=== PATIENT | female | born 1960 | race Caucasian/White ===

== ENCOUNTER 2017-12-03 13:19 | Emergency (ER) | payer SELFPAY ==
[2017-12-03 13:23] VITALS: BMI 50.8
[2017-12-03] MEDS ORDERED: DUONEB 0.5 MG/3 MG ONE (13:32)
[2017-12-03] MEDS ORDERED: DUONEB 0.5 MG/3 MG NEB ONE (13:35)
[2017-12-03] MEDS ORDERED: ASPIRIN 81 MG CHEWTAB PO ONE (13:37)
[2017-12-03] MEDS ORDERED: ASPIRIN 81 MG CHEWTAB ONE (13:38)
[2017-12-03] MEDS ORDERED: NITROSTAT SL PRN (13:40)
--- NOTE | 2017-12-03 13:42 | DR.SOBA ---
HPI - Time Seen Time seen: 13:38 - Primary Care Physician Primary Care Physician: Arabella COWAN [employer] - Complaints Chief Complaint Doctors Comments: Patient presented to the ED with complaint of dyspnea and chest pain. The chest pain onset was early this AM and has continued. She admits to a history of heart attack in 2000 Chief Complaint:: PT. C/O SHORTNESS OF BREATH AND CHEST PAIN THAT BEGAN AT 0400. CHEST PAIN IS SHARP IN NATURE AND RADIATES THROUGH TO BACK. PT. ALSO HAS A COUGH. - Source History Provided: Patient - Mode of Arrival Mode of Arrival: Wheelchair - Timing Onset of Chief Complaint: 12/03/17 PMH - PMH Past Medical History: Yes Past Medical History: Anemia, Angina, Anxiety, Arthritis, Asthma, COPD, Coronary Artery Disease, Depression, Diabetes, Dyslipidemia, Hypertension, [place], PUD Past Surgical History: Yes Surgical History: Appendectomy, LABORER WRECKING AND SALVAGING Surgery - Family History History of Family Medical Conditions: Yes Family Medical History: Diabetes Mellitus, Coronary Artery Disease, Hypertension - Social History Does patient currently use any type of tobacco product: No Have you used tobacco products in the last 12 months: No Type of Tobacco Use: None Does any household member use tobacco: No Alcohol Use: None Do you use any recreational Drugs:: No Lives With: Family Lives Where: Home - infectious screening In the last 2 months have you had wt loss of >10#?: NO Have you had fever, night sweats or hemotysis?: No Have you traveled outside the country in the last 6 months?: No Isolation: Standard ROS - Review of Systems Eyes: No Symptoms Reported ENTM: No Symptoms Reported Respiratoy: Short of Breath Cardiovascular: Chest Pain Gastrointestinal/Abdominal: No Symptoms Reported Genitourinary: No Symptoms Reported Neurological: Headache Musculoskeletal: No Symptoms Reported Integumentary: No Symptoms Reported Hematologic/Lymphatic: No Symptoms Reported Endocrine: No Symptoms Reported Psychiatric: No Symptoms Reported All Other Systems: Reviewed and Negative PE - Vital Signs Vitals: Temperature 97.6 F Pulse Rate [Apical] 116 Pulse Rate 119 Respiratory Rate 35 Blood Pressure [Right Arm] 83/44 Blood Pressure [Left Arm] 81/49 Blood Pressure 117/61 O2 Sat by Pulse Oximetry 87 - General General Appearance: Alert, In Distress - Head Head Exam: Normal Inspection, Atraumatic - Eyes Eye exam: Normal Appearance, PERRL, EOMI - ENT ENT Exam: Normal Exam - Neck Neck Exam: Normal Inspection, Full ROM - Chest Chest Inspection: Normal Inspection - Respiratory Respiratory Exam: Normal Lung Sounds Bilat Respiratory Exam: Bilateral Clear to Auscultation - Cardiovascular Cardiovascular Exam: Regular Rate, Normal Rhythm - Abdominal Exam Abdominal Exam: Normal Inspection Abdominal Tenderness: negative: RUQ, RLQ, LUQ, LLQ, Epigastrium, Suprapubic, Diffuse, Mild, Moderate, Severe, Other - Extremities Extremities Exam: Normal Inspection. negative: Edema - Back Back Exam: Normal Inspection - Neurologic Neurological Exam: Alert, Oriented X3, CN II-XII Intact - Psychiatric Psychiatric Exam: Normal Affect - Skin Skin Exam: Warm, Dry, Intact, Normal Color. negative: Erythema Course - Treatment Treatment: Ceftriaxone 1gm IV - Reevaluation 1st: - Consultation Called: 17:00 (Dr Burt accepted patient in transfer for futher evaluation and treatment) - Education/Counseling Education/Counseling: Counseling ROR - Labs Reviewed Laboratory Results Reviewed?: Yes (Lactate 6.8) Result Diagrams: 12/03/17 13:55 12/03/17 13:55 Laboratory: WBC 19.5 X10^3/uL (3.6-10.0) H 12/03/17 13:55 RBC 4.75 X10^6/uL (3.5-5.4) 12/03/17 13:55 Hgb 13.1 g/dL (12.0-16.0) 12/03/17 13:55 Hct 41.3 % (36.0-47.0) 12/03/17 13:55 MCV 87.0 fL (80.0-100.0) 12/03/17 13:55 MCH 27.5 pg (27.0-34.0) 12/03/17 13:55 MCHC 31.6 g/dL (33.0-35.0) L 12/03/17 13:55 RDW 16.4 % (11.6-16.5) 12/03/17 13:55 Plt Count 294 X10^3/uL (150.0-450.0) 12/03/17 13:55 Plt Count Comment Adequate (ADEQUATE) 12/03/17 13:55 MPV 9.9 fL (7.4-11.0) 12/03/17 13:55 Neut % 90.2 % (42.0-75.0) H 12/03/17 13:55 Lymph % 4.3 % (21.0-51.0) L 12/03/17 13:55 [place] % 5.2 % (0.0-13.0) 12/03/17 13:55 Eos % 0.0 % (0.9-2.9) L 12/03/17 13:55 Baso % 0.3 % (0.2-1.0) 12/03/17 13:55 Neut # 17.6 x10^3/uL (2.2-4.8) H 12/03/17 13:55 Lymph # 0.8 X10^3/uL (1.3-2.9) L 12/03/17 13:55 [place] # 1.0 x10^3/uL (0.3-0.8) H 12/03/17 13:55 Eos # 0.0 x10^3/uL (0.0-0.2) 12/03/17 13:55 Baso # 0.1 X10^3/uL (0.0-0.1) 12/03/17 13:55 Absolute Nucleated RBC 0.2 /100WBC 12/03/17 13:55 Total Counted 100 12/03/17 13:55 Neutrophils % (Manual) 57 % (39-76) 12/03/17 13:55 Band Neutrophils % 20 % (0-10) H 12/03/17 13:55 Lymphocytes % (Manual) 6 % (13-43) L 12/03/17 13:55 Monocytes % (Manual) 15 % (4-9) H 12/03/17 13:55 Atypical Lymphocytes 2 12/03/17 13:55 Plt Morphology Comment Normal (NORMAL) 12/03/17 13:55 RBC Morphology Normal (NORMAL) 12/03/17 13:55 INR Target Range - 12/03/17 13:55 INR 1.22 (0.8-1.3) 12/03/17 13:55 PTT 32.1 SECONDS (22.9-36.5) 12/03/17 13:55 PTT Comment - 12/03/17 13:55 D-Dimer 963 ng/mL (0-400) H* 12/03/17 13:55 Sample Site Rra 12/03/17 16:15 ABG pH 7.220 (7.35-7.45) L 12/03/17 16:15 ABG pCO2 63.0 mmHg (35.0-45.0) H* 12/03/17 16:15 ABG pO2 55.0 mmHg (80.0-100.0) L 12/03/17 16:15 ABG HCO3 25.8 mmol/L (22-26) 12/03/17 16:15 ABG O2 Saturation 81.0 % (90-100) L* 12/03/17 16:15 ABG Base Excess -3.0 mmol/L (-2.0-2.0) L 12/03/17 16:15 Antonio Test Pos 12/03/17 16:15 A-a Gradient 151.0 mmHg 12/03/17 16:15 FiO2 40.000 12/03/17 16:15 Blood Gas Comments [facility] cs 12/03/17 16:15 Sodium 135 mmol/L (136-145) L 12/03/17 13:55 Corrected Sodium 139 mmol/L (136-145) 12/03/17 13:55 Potassium 3.4 mmol/L (3.5-5.1) L 12/03/17 13:55 Chloride 96 mmol/L (98-107) L 12/03/17 13:55 Carbon Dioxide 25.5 mmol/L (21-32) 12/03/17 13:55 BUN 13 mg/dL (7-18) 12/03/17 13:55 Creatinine 1.49 mg/dL (0.55-1.02) H 12/03/17 13:55 Est GFR (MDRD) Af Amer 46 (>60) L 12/03/17 13:55 Est GFR (MDRD) Non-Af 38 (>60) L 12/03/17 13:55 Glucose 283 mg/dL (65-99) H 12/03/17 13:55 Lactic Acid 6.8 mmol/L (0.4-2.0) H 12/03/17 15:26 Calcium 8.6 mg/dL (8.5-10.1) 12/03/17 13:55 Corrected Calcium 9.6 mg/dL (8.5-10.1) 12/03/17 13:55 Magnesium 1.3 mg/dL (1.7-2.9) L 12/03/17 13:55 Total Bilirubin 0.90 mg/dL (0.2-1.0) 12/03/17 13:55 AST 47 Units/L (15-37) H 12/03/17 13:55 ALT 36 Units/L (12-78) 12/03/17 13:55 Alkaline Phosphatase 81 Units/L (46-116) 12/03/17 13:55 Creatine Kinase 44 Units/L (26-192) 12/03/17 13:55 CK-MB (CK-2) 1.7 ng/mL (0-4.0) 12/03/17 13:55 CK/CKMB % Calc 3.9 % (<4) 12/03/17 13:55 Troponin I 0.03 ng/mL (0-1.5) 12/03/17 13:55 Total Protein 7.5 g/dL (6.4-8.2) 12/03/17 13:55 Albumin 2.7 g/dL (3.4-5.0) L 12/03/17 13:55 Globulin 4.8 g/dL (2.5-4.5) H 12/03/17 13:55 Albumin/Globulin Ratio 0.6 Ratio (1.1-2.1) L 12/03/17 13:55 Specimen Type Catherized urine 12/03/17 14:44 Urine Color Dark yellow (YELLOW) 12/03/17 14:44 Urine Appearance Slightly hazy (CLEAR) 12/03/17 14:44 Urine pH 5.0 (5.0 - 8.0) 12/03/17 14:44 Ur Specific Daniels 1.020 (1.000-1.030) 12/03/17 14:44 Urine Protein 3+ (NEGATIVE) 12/03/17 14:44 Urine Glucose (UA) Negative (NEGATIVE) 12/03/17 14:44 Urine Ketones Negative (NEGATIVE) 12/03/17 14:44 Urine Occult Blood 2+ (NEGATIVE) 12/03/17 14:44 Urine Nitrite Negative (NEGATIVE) 12/03/17 14:44 Urine Bilirubin Negative (NEGATIVE) 12/03/17 14:44 Urine Urobilinogen Normal (NORMAL) 12/03/17 14:44 Ur Leukocyte Esterase 1+ (NEGATIVE) 12/03/17 14:44 Urine RBC 5-7 /HPF (NEGATIVE) 12/03/17 14:44 Urine WBC 2-3 /HPF (NEGATIVE) 12/03/17 14:44 Ur Squamous Epith Cells Few /HPF (NEGATIVE) 12/03/17 14:44 Amorphous Sediment 2+ /HPF (NEGATIVE) 12/03/17 14:44 Urine Bacteria 1+ /HPF (NEGATIVE) 12/03/17 14:44 Fine Granular Casts Few /LPF (NEGATIVE) 12/03/17 14:44 Ur Culture Indicated? No/not indicated 12/03/17 14:44 - XRAY XRAY Interpreted by: Radiologist (Chest: single portable view is submitted, limited by low lung volumes. There is bronchovascular crowding this may reflect vascular congestion. There is alef-sided pleural effusion. Caridac silhouette appears enlarged. The soft tissues are unremarkable. Impression: Cardiomegaly , vascular congestin and left pleural effusion) - Diagnosis Discharge Problem: Respiratory distress, Shock Dyspnea Qualifiers: Dyspnea type: unspecified Qualified Code(s): R06.00 - Dyspnea, unspecified - Discharge Plan Condition: Stable - Follow ups/Referrals Follow ups/Referrals: SATYA COWAN [Primary Care Provider] - 3 days - Instructions
[2017-12-03] MEDS ORDERED: NITROSTAT SL ONE (14:02)
[2017-12-03 14:04] LABS: BASOPHILS # (AUTO) 0.1 X10^3/uL (0.0-0.1); BASOPHILS % (AUTO) 0.3 % (0.2-1.0); HEMATOCRIT 41.3 % (36.0-47.0); HEMOGLOBIN 13.1 g/dL (12.0-16.0); LYMPHOCYTES # (AUTO) 0.8 X10^3/uL (1.3-2.9); LYMPHOCYTES % (AUTO) 4.3 % (21.0-51.0); MEAN CORPUSCULAR HEMOGLOBIN 27.5 pg (27.0-34.0); MEAN CORPUSCULAR HGB CONC 31.6 g/dL (33.0-35.0); MEAN PLATELET VOLUME 9.9 fL (7.4-11.0); MONOCYTES % (AUTO) 5.2 % (0.0-13.0); NEUTROPHILS # (AUTO) 17.6 x10^3/uL (2.2-4.8); NEUTROPHILS % (AUTO) 90.2 % (42.0-75.0); PLATELET COUNT 294 X10^3/uL (150.0-450.0); RED BLOOD COUNT 4.75 X10^6/uL (3.5-5.4); RED CELL DISTRIBUTION WIDTH 16.4 % (11.6-16.5); WHITE BLOOD COUNT 19.5 X10^3/uL (3.6-10.0)
[2017-12-03 14:12] LABS: ABG BASE EXCESS -3.3 mmol/L (-2.0-2.0); ABG HCO3 25.6 mmol/L (22-26)
[2017-12-03] MEDS ORDERED: MORPHINE SULFATE INJ 4 MG IVP ONE (14:12)
[2017-12-03 14:13] LABS: ABG ALLEN TEST POS
[2017-12-03] MEDS ORDERED: MORPHINE SULFATE INJ 4 MG ONE (14:13)
[2017-12-03] MEDS ORDERED: NS 1000 ML 1,000 ML ONE ×2 (14:17→15:35)
[2017-12-03 14:18] LABS: ALBUMIN 2.7 g/dL (3.4-5.0); CALCIUM 8.6 mg/dL (8.5-10.1); CARBON DIOXIDE 25.5 mmol/L (21-32); COR CA(FOR HYPOALB) 9.6 mg/dL (8.5-10.1); CREATININE 1.49 mg/dL (0.55-1.02); TOTAL PROTEIN 7.5 g/dL (6.4-8.2)
[2017-12-03] MEDS ORDERED: NS 1000 ML 1,000 ML IV ONE ×2 (14:19→15:37)
--- NOTE | 2017-12-03 14:19 | RAD ---
HISTORY: Shortness of breath, chest pain Study: Single view chest Comparison: 11/07/2016 Findings: Single portable view is submitted, limited by low lung volumes. There is bronchovascular crowding the may reflect vascular congestion. There is a left-sided pleural effusion. Cardiac silhouette appears enlarged. The soft tissues are unremarkable. IMPRESSION: 1. Cardiomegaly, vascular congestion and left pleural effusion. Reported By:
[2017-12-03 14:26] LABS: CKMB % 3.9 % (<4); CREATINE KINASE MB 1.7 ng/mL (0-4.0); MAGNESIUM 1.3 mg/dL (1.7-2.9); TROPONIN I 0.03 ng/mL (0-1.5)
[2017-12-03 14:29] LABS: BAND NEUTROPHILS % 20 % (0-10)
[2017-12-03 14:30] LABS: PLATELET MORPHOLOGY COMMENT NORMAL (NORMAL)
[2017-12-03] MEDS ORDERED: LASIX ONE (14:56)
[2017-12-03 15:01] LABS: BILIRUBIN,URINE NEGATIVE (NEGATIVE); BLOOD/HEMOGLOBIN,URINE 2+ (NEGATIVE); GLUCOSE, URINE NEGATIVE (NEGATIVE); KETONES,URINE NEGATIVE (NEGATIVE); LEUKOCYTE ESTERASE ,URINE 1+ (NEGATIVE); NITRITES,URINE NEGATIVE (NEGATIVE); PROTEIN,URINE 3+ (NEGATIVE); UROBILINOGEN,URINE NORMAL (NORMAL)
[2017-12-03] MEDS ORDERED: DOPAMINE IV PREMIX 400 MG/250 ML 400 MG/250 ML BAG IV PRN (15:05)
[2017-12-03] MEDS ORDERED: DOPAMINE IV PREMIX 400 MG/250 ML 400 MG/250 ML BAG IV ONE ×2 (15:07→18:41)
[2017-12-03 15:12] LABS: AMORPHOUS SEDIMENT,UR 2+ /HPF (NEGATIVE); APPEARANCE,URINE SLIGHTLY HAZY (CLEAR); BACTERIA,URINE 1+ /HPF (NEGATIVE); COLOR,URINE DARK YELLOW (YELLOW); FINE GRANULAR CASTS,URINE FEW /LPF (NEGATIVE); SQUAMOUS EPITHELIAL CELL,UR FEW /HPF (NEGATIVE)
[2017-12-03] MEDS: DOPAMINE IV PREMIX 400 MG/250 ML 400 MG/250 ML BAG IV PRN ×2 (15:32→15:51)
[2017-12-03] MEDS ORDERED: ROCEPHIN VIAL 1 GM 1 GM in NS 100 ML IV + SPIKE MINIBAG* 100 ML IV SCH (16:00)
[2017-12-03] MEDS ORDERED: ROCEPHIN VIAL 1 GM ONE (16:14)
[2017-12-03 16:24] LABS: ABG HCO3 25.8 mmol/L (22-26)
[2017-12-03 16:25] LABS: ABG ALLEN TEST POS
[2017-12-03] MEDS ORDERED: XYLOCAINE 1 % (PLAIN) ONE (16:47)
--- NOTE | 2017-12-03 17:28 | RAD ---
HISTORY: Shortness of breath, chest pain, central line placement Study: Single view chest Comparison: Earlier same day Findings: Single portable view is submitted, limited by low lung volumes and patient body habitus/positioning. Left-sided CVL terminates to the left of midline in uncertain position, possibly within the brachioce phalic vein however cannot exclude arterial position. Cardiomegaly and left pleural effusion is noted . No pneumothorax. The soft tissues are unremarkable. IMPRESSION: 1. Left-sided CVL terminates to the left of midline in indeterminate position; this may possibly be w ithin the brachiocephalic vein however cannot exclude arterial position. Correlation with lines funct ion is recommended. 2. Cardiomegaly and left pleural effusion. No pneumothorax. Reported By:
[2017-12-03] MEDS ORDERED: DIPRIVAN VIAL 20 ML ONE (17:29)
[2017-12-03] MEDS ORDERED: QUELICIN (OR ANECTINE) ONE (17:29)
[2017-12-03] MEDS ORDERED: DIPRIVAN PREMIX 1 GM IV 1,000 MG/100 ML VIAL ONE (17:57)
[2017-12-03] MEDS ORDERED: DIPRIVAN PREMIX 1 GM IV 1,000 MG/100 ML VIAL IV PRN (18:09)
[2017-12-03 18:38] VITALS: BP 104/51
[2017-12-03] MEDS ORDERED: [UNRECOGNIZED DRUG - OTHER] PO SCH (21:00)
[2017-12-03] MEDS ORDERED: PATIENT'S HOME MEDICATION (Lovastatin [Lovastatin] 40 MG) PO SCH (21:00)
[2017-12-03] MEDS ORDERED: METFORMIN HCL PO SCH (21:00)
[2017-12-03] MEDS ORDERED: EFFEXOR XR 150 MG CAP PO SCH (21:00)
[2017-12-03] MEDS ORDERED: PATIENT'S HOME MEDICATION (Albuterol Sulfate 1 INH) INH SCH (21:00)
[2017-12-03] MEDS ORDERED: NEURONTIN CAP 100 MG PO SCH (21:00)
[2017-12-03] MEDS ORDERED: COREG TAB 12.5 MG PO SCH (21:00)
[2017-12-03] MEDS ORDERED: SITAGLIPTIN PHOS PO SCH (21:00)
[2017-12-04] MEDS ORDERED: LASIX IVP SCH (09:00)
== END 2017-12-03 18:40 | disposition short-term general hospital (02) | DRG 204 ==
LOC: ER 13:25
PROC: 0BH17EZ Insertion of Endotracheal Airway into Trachea, Via Natural or Artificial Opening (ICD-10-PCS; principal; 2017-12-03)
PROC: 05H633Z Insertion of Infusion Device into Left Subclavian Vein, Percutaneous Approach (ICD-10-PCS; principal; 2017-12-03)
DX: R06.03 Acute respiratory distress (principal); R57.8 Other shock
CPT/HCPCS: 31500; 36415; 36556; 36600; 51702; 71045; 80053; 81001; 82550; 82553; 82803; 83605; 83735; 84484; 85025; 85378; 85610; 85730; 87040; 93005; 93010; 93041; 94640; 96365; 96367; 96374; 96375; 99284; 99291; A4222; A4618; A7030; J0330; J0696; J1265; J1940; J2001; J2270; J3490; J7620